=== PATIENT | female | born 1985 | race Caucasian/White ===

== ENCOUNTER 2019-10-09 08:29 | Emergency (ER) | payer OTHER ==
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
[2019-10-09] MEDS ORDERED: Morphine 4 MG/ML VIAL ONE (10:30)
== END 2019-10-09 11:30 | disposition home or self-care (01) ==
LOC: ERS 08:29
DX: S80.02XA Contusion of left knee, initial encounter (principal); S40.022A Contusion of left upper arm, initial encounter; S00.01XA Abrasion of scalp, initial encounter; S30.811A Abrasion of abdominal wall, initial encounter; S40.212A Abrasion of left shoulder, initial encounter; S80.212A Abrasion, left knee, initial encounter; V89.2XXA Person injured in unspecified motor-vehicle accident, traffic, initial encounter
CPT/HCPCS: 70450; 71260; 72125; 74177; 96374; G0390; J2270